=== PATIENT | female | born 1945 | race Caucasian/White ===

== ENCOUNTER 2023-11-27 12:06 | Observation (INO) ==
[2023-11-27 12:45] LABS: ABS Basophils 0.1 10^3/uL (0.0-0.1); ABS Lymphocytes 0.8 10^3/uL (1.0-4.8); ABS Monocytes 0.3 10^3/uL (0.0-0.9); ABS Neutrophils 4.6 10^3/uL (1.5-7.6); Eosinophil % 0.4 %; Hematocrit 37.9 % (35-45); Hemoglobin 13.1 g/dL (11.5-14.3); Lymphocyte % 13.2 %; Mean Corpuscular Hemoglobin 30.7 pg (27-33); Mean Corpuscular Hgb Conc 34.6 g/dL (31-36); Mean Corpuscular Volume 88.8 fL (80-97); Mean Platelet Volume 7.5 fL (7.5-11.2); Platelet Count 197 10^3/uL (150-450); Red Blood Count 4.26 10^6/uL (3.63-4.92); Red Cell Distribution Width 12.9 % (12-17); White Blood Count 5.8 10^3/uL (3.8-11.8)
[2023-11-27 12:54] LABS: INR 1.09 (0.83-1.13)
[2023-11-27 13:18] LABS: Albumin 3.9 g/dL (3.2-5.2); Albumin/Globulin Ratio 1.6 (1-3); Calcium 9.7 mg/dL (8.6-10.3); Creatinine, Serum 1.03 mg/dL (0.51-0.95); Globulin 2.5 g/dL (2-4); Total Bilirubin 0.8 mg/dL (0.2-1.0); Total Protein 6.4 g/dL (6.4-8.9); eGFR CKD-EPI 56.4 (>60)
[2023-11-27 13:27] LABS: TSH Ultra Thyroid Stim Horm 0.86 mcIU/mL (0.34-5.60)
[2023-11-27 13:32] LABS: Free T4 1.71 ng/dL (0.61-1.12)
[2023-11-27 14:06] LABS: High Sensitivity Troponin 1 Hr 20 pg/mL (<15)
[2023-11-27] MEDS: Aspirin EC 325 mg TAB.EC PO ONE (14:51)
[2023-11-27] MEDS: Enoxaparin 40 MG/0.4 ML SYR SUBCUT SCH (18:35)
[2023-11-28 06:21] LABS: Hematocrit 37.9 % (35-45); Hemoglobin 12.9 g/dL (11.5-14.3); Mean Corpuscular Hemoglobin 30.1 pg (27-33); Mean Corpuscular Hgb Conc 33.9 g/dL (31-36); Mean Corpuscular Volume 88.8 fL (80-97); Mean Platelet Volume 7.6 fL (7.5-11.2); Platelet Count 198 10^3/uL (150-450); Red Blood Count 4.27 10^6/uL (3.63-4.92); Red Cell Distribution Width 12.9 % (12-17)
[2023-11-28 06:50] LABS: Calcium 9.2 mg/dL (8.6-10.3); Creatinine, Serum 0.97 mg/dL (0.51-0.95); Magnesium 1.9 mg/dL (1.9-2.7); Potassium 4.2 mmol/L (3.5-5.0); eGFR CKD-EPI 60.6 (>60)
[2023-11-28] MEDS ORDERED: Aminophylline 25 MG/ML VIAL ONE (12:23)
[2023-11-28] MEDS ORDERED: Regadenoson 0.4 MG/5 ML SYRINGE ONE (12:24)
[2023-11-28 14:06] VITALS: BP 125/73
[2023-11-28] MEDS: Magnesium Sulfate 2 gm BAG 2 GM/50 ML BAG IVPB ONE (14:11)
== END 2023-11-28 16:05 | disposition home or self-care (01) ==
LOC: ED 12:06 → EDHOLD 12:06 → MEDTELE 21:38
PROVIDERS: ADMIT Student in an Organized Health Care Education/Training Program; ATTEND Student in an Organized Health Care Education/Training Program